=== PATIENT | male | born 1975 | race Caucasian/White ===

== ENCOUNTER 2025-03-15 15:57 | Emergency (ER) | payer MEDICAID, SELFPAY ==
--- NOTE | 2025-03-15 16:03 | XRR_ITS ---
PROCEDURE INFORMATION: Exam: XR Left Hand Exam date and time: 03/15/2025 4:34 PM Age: 49 years old Clinical indication: Injury or trauma; Other: Not specified; Blunt trauma (contusions or hematomas); Hand; Left TECHNIQUE: Imaging protocol: Radiologic exam of the left hand. Views: 3 or more views. COMPARISON: No relevant prior studies available. FINDINGS: Bones/joints: Comminuted, impacted fracture involves the distal 4th metacarpal shaft, likely extending into the articular surface of the metacarpal head. Mild fracture fragment displacement and mild volar angulation of the 4th metacarpal head. No other fractures Soft tissues: Moderate soft tissue swelling involves the hand diffusely. XR/XR hand LT min 3V* [id number] IMPRESSION: Comminuted, impacted fracture involves the distal 4th metacarpal shaft, likely extending into the articular surface of the metacarpal head.
[2025-03-15 16:18] VITALS: BP 122/81; PULSE 92; RESP 16; TEMP 36.8; O2SAT 98; BMI 23.1
== END 2025-03-15 18:12 | disposition left against medical advice (07) ==
PROVIDERS: Emergency Provider Emergency Medicine
DX: Z53.21 Procedure and treatment not carried out due to patient leaving prior to being seen by health care provider (principal); S62.325A Displaced fracture of shaft of fourth metacarpal bone, left hand, initial encounter for closed fracture; X58.XXXA Exposure to other specified factors, initial encounter
CPT/HCPCS: 73130